=== PATIENT | male | born 1985 | race Caucasian/White ===

== ENCOUNTER 2023-01-15 10:29 | Emergency (ER) | payer SELFPAY ==
[~2023-01-15] VITALS: Ht 170.2 cm; Wt 75.0 kg
[2023-01-15 10:37] VITALS: BP 126/72; PULSE 73; RESP 16; TEMP 98.7; O2SAT 99
[2023-01-15] MEDS ORDERED: FLUORESCEIN SODIUM 1MG/STRIP BOTHEYE ONE (11:30)
[2023-01-15] MEDS ORDERED: LIDOCAINE HCL/PF 1% 10 MG/ML 5ML VIAL INFIL ONE (11:30)
[2023-01-15] MEDS ORDERED: BACITRACIN ZINC OINT UDPKT TOP ONE (11:30)
[2023-01-15] MEDS ORDERED: TETANUS, DIPHTHERIA, PERTUSSIS VAC/PF 0.5ML (>10YR OLD) IM ONE (13:30)
[2023-01-15 15:45] LABS: HEMATOCRIT. 43.2 % (42.0-52.0); HEMOGLOBIN. 14.5 g/dL (14.0-18.0); MEAN CORPUSCULAR HEMOGLOBIN 30.3 pg (28.0-32.0); MEAN CORPUSCULAR HGB CONC 33.6 g/dL (31.0-37.0); MEAN CORPUSCULAR VOLUME 90.1 fL (80.0-94.0); MEAN PLATELET VOLUME 6.1 fl (7.4-10.4); PLATELET 304 x1000/uL (130-400); RED BLOOD CELL COUNT 4.79 mill/uL (4.7-6.1); RED CELL DISTRIBUTION WIDTH 13.7 % (11.6-14.6); WHITE BLOOD COUNT 9.9 x1000/uL (4.5-11.0)
[2023-01-15 15:53] LABS: CHLORIDE 104 mEq/L (98-107); INDEX HEMOLYSI 1 (1-3); INDEX ICTERIC 1 (1-4); INDEX LIPEMIC 1 (1-3); POTASSIUM 3.8 mEq/L (3.5-5.1); SODIUM 136 mEq/L (136-145)
[2023-01-15 15:54] LABS: INR 0.9; PROTHROMBIN TIME 10.1 sec (9.6-11.0)
[2023-01-15 15:55] LABS: DIFFERENTIAL COMMENT 1
[2023-01-15 16:03] LABS: ALANINE AMINOTRANSFERASE 720 IU/L (13-61); ALBUMIN 3.5 g/dL (3.4-5.0); ASPARTATE AMINOTRANSFERASE 810 IU/L (15-37); BILIRUBIN TOTAL 0.7 mg/dL (0.1-1.0); CALCIUM 8.7 mg/dL (8.5-10.1); CARBON DIOXIDE 27 mEq/L (21-32); CREATININE 0.7 mg/dL (0.6-1.3); ETHANOL BLOOD < 10 mg/dL (<10); GLUCOSE 124 mg/dL (70-105); PROTEIN TOTAL 6.7 g/dL (6.0-8.3); UREA NITROGEN BLOOD 18 mg/dL (7-21)
[2023-01-15] MEDS ORDERED: AMOX1TAB16 MT (16:18)
[2023-01-15 16:36] LABS: PLATELET ESTIMATE NORMAL
[2023-01-15] MEDS ORDERED: NAPR-1176 MT (17:51)
== END 2023-01-15 18:26 | disposition home or self-care (01) ==
LOC: ER 10:29
DX: S01.21XA Laceration without foreign body of nose, initial encounter (principal); Y08.89XA Assault by other specified means, initial encounter; Y93.89 Activity, other specified; Y92.89 Other specified places as the place of occurrence of the external cause; Y99.8 Other external cause status
CPT/HCPCS: 80053; 80320; 85025; 85610; 36415; 71045; 73130; 70450; 70486; 72125; 90715; 12013; 90471; 99285; J3490; Z7610; G0480